=== PATIENT | male | born 1970 | race Caucasian/White ===

== ENCOUNTER 2017-06-15 15:38 | Emergency (ER) | payer OTHER ==
[2017-06-15 15:57] VITALS: BP 145/89; PULSE 101; TEMP 98.6; BMI 25.8
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
== END 2017-06-15 17:09 | disposition home or self-care (01) ==
LOC: JERFT 15:38
DX: S80.02XA Contusion of left knee, initial encounter (principal); S80.212A Abrasion, left knee, initial encounter; V01.00XA Pedestrian on foot injured in collision with pedal cycle in nontraffic accident, initial encounter; Y92.482 Bike path as the place of occurrence of the external cause; Y93.02 Activity, running; Y99.8 Other external cause status
CPT/HCPCS: 99281-25